=== PATIENT | female | born 1965 | race Caucasian/White ===

== ENCOUNTER 2020-01-04 09:21 | Outpatient (CLI) | payer OTHER, SELFPAY ==
[2020-01-04 09:40] LABS: Basophils Absolute Auto 0.1 K/mm3 (0.0-0.1); Basophils Percent Auto 0.6 % (0.2-1.2); Eosinophils Absolute Auto 0.2 K/mm3 (0-0.3); Eosinophils Percent Auto 2.3 % (0-4.4); Hematocrit 42.3 % (37.0-47.0); Hemoglobin 14.1 g/dL (12.0-15.0); Immature Granulocyte Absolute 0.06 K/mm3 (0.00-0.031); Immature Granulocyte Percent A 0.6 % (0-0.5); Lymphocytes Absolute Auto 3.97 K/mm3 (0.9-3.2); Lymphocytes Percent Auto 38.8 % (18.3-44.2); Mean Corpuscular HGB Conc 33.3 g/dl (32-36); Mean Corpuscular Hemoglobin 30.3 pg (26-34); Mean Corpuscular Volume 90.8 fl (80-100); Mean Platelet Volume 9.6 fl (7.4-10.4); Monocytes Absolute Auto 0.6 K/mm3 (0.1-0.6); Monocytes Percent Auto 5.4 % (2.6-8.5); Neutrophils Absolute Auto 5.4 K/mm3 (1.3-6.7); Neutrophils Percent Auto 52.3 % (45.5-73.1); Platelet Count Result 288 k/mm3 (150-375); Red Blood Count 4.66 M/mm3 (4.2-5.4); Red Cell Distribution Width 12.6 % (11.5-14.5); White Blood Count 10.2 K/mm3 (4.5-10.0)
[2020-01-04 12:28] LABS: Alanine Aminotransferase 45 U/L (4-35); Albumin Level 4.4 g/dL (3.5-5.1); Alkaline Phosphatase 70 U/L (38-126); Anion Gap 9 mmol/L (8-16); Aspartate Amino Transferase 28 U/L (14-36); Bilirubin,Total 0.4 mg/dL (0.2-1.3); Blood Urea Nitrogen 10 mg/dL (7-17); CRP 0.9 mg/dL (<1.0); Calcium 9.8 mg/dL (8.4-10.2); Carbon Dioxide 28 mmol/L (22-30); Chloride 104 mmol/L (98-107); Estimated Glomerular Filt Rate > 60; Glucose 150 mg/dL (65-105); Potassium 4.1 mmol/L (3.4-5.0); Sodium 141 mmol/L (137-145)
[2020-01-04 12:47] LABS: Erythrocyte Sedimentation Rate 35 mm/hr (0-20)
== END 2020-01-04 09:22 | disposition home or self-care (01) ==
PROVIDERS: PCP Emergency Medicine; Visit Provider Internal Medicine Hematology & Oncology
DX: D72.829 Elevated white blood cell count, unspecified (principal)
CPT/HCPCS: 36415; 80053; 85025; 85652; 86140; 88184

== ENCOUNTER 2020-09-14 10:34 | Outpatient (CLI) | payer OTHER, SELFPAY ==
[2020-09-14 10:54] LABS: Basophils Absolute Auto 0.1 K/mm3 (0.0-0.1); Basophils Percent Auto 0.7 % (0.2-1.2); Eosinophils Absolute Auto 0.2 K/mm3 (0-0.3); Eosinophils Percent Auto 1.9 % (0-4.4); Hematocrit 42.6 % (37.0-47.0); Hemoglobin 14.1 g/dL (12.0-15.0); Immature Granulocyte Absolute 0.08 K/mm3 (0.00-0.031); Immature Granulocyte Percent A 0.8 % (0-0.5); Lymphocytes Absolute Auto 4.31 K/mm3 (0.9-3.2); Mean Corpuscular HGB Conc 33.1 g/dl (32-36); Mean Corpuscular Hemoglobin 30.3 pg (26-34); Mean Corpuscular Volume 91.4 fl (80-100); Mean Platelet Volume 9.4 fl (7.4-10.4); Monocytes Absolute Auto 0.4 K/mm3 (0.1-0.6); Monocytes Percent Auto 4.2 % (2.6-8.5); Neutrophils Absolute Auto 5.4 K/mm3 (1.3-6.7); Neutrophils Percent Auto 51.4 % (45.5-73.1); Platelet Count Result 295 k/mm3 (150-375); Red Blood Count 4.66 M/mm3 (4.2-5.4); Red Cell Distribution Width 12.7 % (11.5-14.5); White Blood Count 10.5 K/mm3 (4.5-10.0)
[2020-09-14 10:59] LABS: Atypical Lymphocytes Present; Platelet Estimate Adequate (Adequate)
== END 2020-09-14 10:35 | disposition home or self-care (01) ==
LOC: ANHLAB 10:39
PROVIDERS: PCP Emergency Medicine; Visit Provider Internal Medicine Hematology & Oncology
DX: D72.829 Elevated white blood cell count, unspecified (principal)
CPT/HCPCS: 36415; 85025

== ENCOUNTER 2021-09-19 10:51 | Outpatient (CLI) | payer OTHER, SELFPAY ==
[2021-09-19 11:09] LABS: Basophils Absolute Auto 0.1 K/mm3 (0.0-0.1); Basophils Percent Auto 0.6 % (0.2-1.2); Eosinophils Absolute Auto 0.2 K/mm3 (0-0.3); Eosinophils Percent Auto 2.3 % (0-4.4); Hematocrit 43.6 % (37.0-47.0); Hemoglobin 14.3 g/dL (12.0-15.0); Immature Granulocyte Absolute 0.05 K/mm3 (0.00-0.031); Immature Granulocyte Percent A 0.5 % (0-0.5); Lymphocytes Absolute Auto 4.08 K/mm3 (0.9-3.2); Lymphocytes Percent Auto 39.4 % (18.3-44.2); Mean Corpuscular HGB Conc 32.8 g/dl (32-36); Mean Corpuscular Hemoglobin 30.6 pg (26-34); Mean Corpuscular Volume 93.2 fl (80-100); Mean Platelet Volume 9.4 fl (7.4-10.4); Monocytes Absolute Auto 0.5 K/mm3 (0.1-0.6); Neutrophils Absolute Auto 5.4 K/mm3 (1.3-6.7); Neutrophils Percent Auto 52.2 % (45.5-73.1); Platelet Count Result 286 k/mm3 (150-375); Red Blood Count 4.68 M/mm3 (4.2-5.4); Red Cell Distribution Width 12.3 % (11.5-14.5); White Blood Count 10.4 K/mm3 (4.5-10.0)
[2021-09-19 11:13] LABS: Blood Urea Nitrogen 7 mg/dL (8-26); Carbon Dioxide 27 mmol/L (22-30); Chloride 100 mmol/L (98-109); Estimated Glomerular Filt Rate 51; Glucose 124 mg/dL (70-105); Ionized Calcium (POC) 1.21 mmol/L (1.11-1.31); Potassium 3.8 mmol/L (3.5-4.9); Sodium 140 mmol/L (138-146)
[2021-09-19 11:17] LABS: Atypical Lymphocytes Present; Platelet Estimate Adequate (Adequate)
== END 2021-09-19 10:52 | disposition home or self-care (01) ==
LOC: ANHLAB 10:52
PROVIDERS: PCP Emergency Medicine; Visit Provider Internal Medicine Hematology & Oncology
DX: D72.829 Elevated white blood cell count, unspecified (principal)
CPT/HCPCS: 36415; 80047; 85025

== ENCOUNTER 2022-10-17 12:44 | Outpatient (CLI) | payer OTHER, SELFPAY ==
[2022-10-17 13:27] LABS: Basophils Absolute Auto 0.1 K/mm3 (0.0-0.1); Basophils Percent Auto 0.6 % (0.2-1.2); Eosinophils Absolute Auto 0.2 K/mm3 (0-0.3); Eosinophils Percent Auto 1.4 % (0-4.4); Hematocrit 43.6 % (37.0-47.0); Hemoglobin 14.8 g/dL (12.0-15.0); Immature Granulocyte Absolute 0.05 K/mm3 (0.00-0.031); Immature Granulocyte Percent A 0.4 % (0-0.5); Immature Platelet Fraction Pct 3.6 % (0.9-11.2); Lymphocytes Absolute Auto 4.39 K/mm3 (0.9-3.2); Lymphocytes Percent Auto 37.1 % (18.3-44.2); Mean Corpuscular HGB Conc 33.9 g/dl (32-36); Mean Corpuscular Hemoglobin 30.9 pg (26-34); Mean Platelet Volume 9.9 fl (7.4-10.4); Monocytes Absolute Auto 0.7 K/mm3 (0.1-0.6); Monocytes Percent Auto 5.6 % (2.6-8.5); Neutrophils Absolute Auto 6.5 K/mm3 (1.3-6.7); Neutrophils Percent Auto 54.9 % (45.5-73.1); Platelet Count Result 292 k/mm3 (150-375); Red Blood Count 4.79 M/mm3 (4.2-5.4); Red Cell Distribution Width 12.4 % (11.5-14.5); White Blood Count 11.8 K/mm3 (4.5-10.0)
[2022-10-17 13:42] LABS: Blood Urea Nitrogen 10 mg/dL (8-26); Carbon Dioxide 27 mmol/L (22-30); Chloride 103 mmol/L (98-109); Estimated Glomerular Filt Rate 57; Potassium 3.7 mmol/L (3.5-4.9); Sodium 140 mmol/L (138-146)
[2022-10-17 13:43] LABS: Glucose 114 mg/dL (70-105); Ionized Calcium (POC) 1.12 mmol/L (1.11-1.31)
== END 2022-10-17 12:45 | disposition home or self-care (01) ==
LOC: ANHLAB 12:49
PROVIDERS: PCP Emergency Medicine; Visit Provider Internal Medicine Hematology & Oncology
DX: D72.829 Elevated white blood cell count, unspecified (principal)
CPT/HCPCS: 36415; 80047; 85025; 85055

== ENCOUNTER 2023-08-10 08:07 | Outpatient (CLI) | payer OTHER, SELFPAY ==
[2023-08-10 08:53] LABS: Hematocrit 43.4 % (37.0-47.0); Hemoglobin 14.3 g/dL (12.0-15.0); Mean Corpuscular HGB Conc 32.9 g/dl (32-36); Mean Corpuscular Hemoglobin 29.9 pg (26-34); Mean Corpuscular Volume 90.8 fl (80-100); Mean Platelet Volume 9.7 fl (7.4-10.4); Platelet Count Result 288 k/mm3 (150-375); Red Blood Count 4.78 M/mm3 (4.2-5.4); Red Cell Distribution Width 12.7 % (11.5-14.5)
[2023-08-10 09:02] LABS: Appearance Urine Clear (Clear); Bilirubin Urine Negative (Negative); Blood Urine Negative (Negative); Color Urine Yellow (Yellow); Glucose Urine UA Negative (Negative); Ketones Urine Negative (Negative); Leukocyte Esterase Ur Negative LEU/UL (Negative); Nitrate Urine Negative (Negative); Protein Urine Negative (Negative); Urobilinogen Urine 0.2 mg/dL (<2.0)
[2023-08-10 09:05] LABS: Add Urine Microscopic? NO; Specific Grav Ur 1.002 (1.001-1.035)
[2023-08-10 09:06] LABS: Alanine Aminotransferase 25 U/L (6-35); Albumin Level 4.6 g/dL (3.5-5.1); Alkaline Phosphatase 70 U/L (38-126); Anion Gap 9 mmol/L (4-12); Aspartate Amino Transferase 21 U/L (14-36); Bilirubin,Total 0.6 mg/dL (0.2-1.3); Blood Urea Nitrogen 10 mg/dL (7-17); Calcium 9.4 mg/dL (8.4-10.2); Carbon Dioxide 27 mmol/L (22-30); Chloride 106 mmol/L (98-107); Cholesterol 223 mg/dL (0-200); Estimated Glomerular Filt Rate > 60; Glucose 134 mg/dL (65-110); HDL Direct 49 mg/dL; Hemoglobin A1C 5.5 % (<5.7); Potassium 3.9 mmol/L (3.4-5.0); Sodium 142 mmol/L (137-145); Triglycerides 170 mg/dL (<150)
[2023-08-10 09:16] LABS: Creatinine Urine 5.3 mg/dL
[2023-08-10 09:17] LABS: LDL Cholesterol Direct 129 mg/dL
[2023-08-10 09:19] LABS: Microalbumin Urine Random < 6.0 mg/L (0-16.7)
[2023-08-10 09:31] LABS: Free T4 Free Thyroxine 1.34 ng/mL (0.78-2.19); Vitamin D 25 Hydroxy 34.7 ng/mL
[2023-08-10 09:40] LABS: Thyroid Stimulating Hormone 0.891 uIU/mL (0.465-4.680)
== END 2023-08-10 08:08 | disposition home or self-care (01) ==
LOC: ANHLAB 08:11
PROVIDERS: PCP Emergency Medicine; Visit Provider Emergency Medicine
DX: M85.88 Other specified disorders of bone density and structure, other site (principal); M50.30 Other cervical disc degeneration, unspecified cervical region; J44.9 Chronic obstructive pulmonary disease, unspecified; G43.909 Migraine, unspecified, not intractable, without status migrainosus; E03.9 Hypothyroidism, unspecified
CPT/HCPCS: 36415; 80053; 80061; 81003; 82043; 82306; 83036; 84439; 84443; 85027

== ENCOUNTER 2024-09-02 11:01 | Outpatient (CLI) | payer OTHER, SELFPAY ==
--- OUTSIDE RECORDS SUMMARY | 2024-09-02 11:06 | XMS_ITS | Encounter Summary ---
Author Organization [facility] Address [address] [facility] [place] [address] Care Team Providers Care Phone Operator Name Role Phone Amor Josue MD Primary Care Provider [phone] Encounter Details Date Type Department Care Team (Late st Contact Info) Description 04/13/2023 Telephone [facility] - Endocrinology [address] [place] [address], [facility] [place] [phone] Raffi Koo MD [address] [place] [id number] Social History Tobacco Use Types Packs/Day Years Used Date Smoking Tobacco: Every Day Cigarettes 1 26 Smokeless Tobacco: Never Alcohol Use Standard Drinks/Week Comments Yes 0 (1 standard drink = 0.6 oz pur e alcohol) socially Comments No Sex and Gender Information Value Date Recorded Sex Assigned at Not on file 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 Raffi Koo Reason for call: Ms. Rebekah Beyer's annual appt w you is 07/02/2023, she needs lab orders for the blood work you would like her to do put in her chart. She is coming to our lab. Patient Call Back number: [phone] INSPECTOR documented in this encounter Plan of Treatment Upcoming Encounters Date Type Department Care Team (Late st Contact Info) Description 12/09/2024 3:20 PM CDT Office Visit [facility] - Endocrinology [address] [place] [address], [place] [address] Raffi Koo MD [address] [place] [address] [place] [address] documented as of this encounter Visit Diagnoses Not on filedocumented in this encounter Care Teams Phone Operator Relationship Specialty Start Date End Date Amor Josue MD [address] [facility] [address] [place] [address] PCP - General 04/26/15 documented as of this encounter
--- OUTSIDE RECORDS SUMMARY | 2024-09-02 11:06 | XMS_ITS | Encounter Summary ---
Author Organization [facility] Address [address] [facility] [place] [address] Care Team Providers Care Bulwark Carpenter Name Role Phone Amor Josue MD Primary Care Provider [phone] Encounter Details Date Type Department Care Team (Late st Contact Info) Description 05/05/2024 Telephone [facility] - Endocrinology [address] [place] [address], [facility] [place] [phone] Raffi Koo MD [address] [place] [address] Social History Tobacco Use Types Packs/Day Years Used Date Smoking Tobacco: Every Day Cigarettes 1 26 Smokeless Tobacco: Never Alcohol Use Standard Drinks/Week Comments Yes 0 (1 standard drink = 0.6 oz pur e alcohol) socially Comments No Sex and Gender Information Value Date Recorded Sex Assigned at Not on file 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 Rebekah Beyer called re: ACUTE LARYNGITIS. She says it's been going on for about 3 weeks, she did reach out to her PCP, who prescribed antibiotics that didn't work. She would liketo know what she can do, is there anythng you ca prescribe? Patient Call Back Number: [phone] documented in this encounter Plan of Treatment Upcoming Encounters Date Type Department Care Team (Late st Contact Info) Description 12/09/2024 3:20 PM CDT Office Visit [facility] - Endocrinology [address] [place] [address], [place] [address] Raffi Koo MD [address] [place] [address] [place] [address] documented as of this encounter Visit Diagnoses Not on filedocumented in this encounter Care Teams Bulwark Carpenter Relationship Specialty Start Date End Date Amor Josue MD [address] [facility] [address] [place] [address] PCP - General 04/26/15 documented as of this encounter
--- OUTSIDE RECORDS SUMMARY | 2024-09-02 11:06 | XMS_ITS | Data Portability ---
Author Organization [facility], Main Office Address [address] [place] [address] Care Team Providers Care General Sales Manager Name Role Phone CAMERON ALANIS Primary Care Provider Assessment No assessment recorded. Plan of Treatment Reminders Order Date Submit Date Provider Last Modified By Organization Details Last Modified Time Details Appointments None recorded. Lab None recorded. Referral None recorded. Procedures None recorded. Surgeries None recorded. Imaging CT, neck, soft tissue, w/ contrast [address] ([employer]), [address] [place], [address], 5 10:59:24 Medication Orders None recorded. Patient TargetsNo targets recorded. Patient Instructions Encounter Date Encounter Id Patient Instructions Last Modified By Organization Details Last Modified Time 04/18/2024 [id number] this patient is refusing a laryngoscopy and biopsy. Hopefully she will change her mind. [email or web address] Not available 04/18/2024 14:56:48 Reason for Referral None Reported. Problems Name Problem SNOMED Code Status Onset Date Resolution Date Notes Provider Name and Address Organization Details Recorded Time Shoulder joint pain 407670515 Active Not Available [facility] 3 17:13:42 Knee pain Active Not Available [facility] 3 17:13:42 Sprain of ankle 52384165 Active Not Available [facility] 3 17:13:42 Lesion of larynx 099887211 Active 025 Roselia Duckworth RN [facility], [facility] 5 14:51:36 Squamous cell carcinoma of larynx 782043806 Active 025 Mann Pritchard MD [address] [facility] [address], [place], [address] , [facility] 14:56:00 Problem Notes None recorded. Procedures Surgical History Date Name Laterality Status Provider Name and Address Organization Details Recorded Time Remove tonsils and adenoids completed Roselia Duckworth RN [facility] 04/18/2024 14:34:28 Imaging Results None recorded. Procedure Notes None recorded. Medical Equipment None Reported. Allergies Allergen ID Allergen Name Allergen Category Reaction Reaction Severity Criticality Documentation Date Start Date Code Code System Note Provider Name and Address Organization Details Recorded Time 60532 codeine medicatio n Not available Not available Not available 04/23/2022 2670 RxNorm Not Available [facility] 17:14:46 81207 doxycycli ne Not available Not available Not available Not available 04/18/2024 3640 RxNorm ZANE Velásquez, [facility] 14:35:39 93137 Substance with sulfonami de structure and antibacte rial mechanism of action (substanc e) medicatio n Not available Not available Not available 04/18/2024 71196 8003 SNOMED ZANE Velásquez, [facility] 14:39:24 Medications Name Sig Start Date Stop Date Status Note LastModified by Organization Details LastModified Time cyclobenzapr ine 10 mg tablet TAKE 1 TABLET BY MOUTH AT BEDTIME FOR 3 DAYS 04/18 completed Not Available Not Available Not Available methocarbamo l 500 mg tablet 04/18 completed Not Available Not Available Not Available doxycycline hyclate 100 mg capsule TAKE 1 CAPSULE BY MOUTH EVERY 12 HOURS FOR 7 DAYS 04/18 completed Not Available Not Available Not Available azithromycin 250 mg tablet 04/18 completed Not Available Not Available Not Available prednisone 20 mg tablet 04/18 completed Not Available Not Available Not Available alendronate 70 mg tablet 04/18 completed Not Available Not Available Not Available amoxicillin 500 mg tablet TAKE 1 TABLET BY MOUTH EVERY 8 HOURS FOR 7 DAYS 04/18 completed Not Available Not Available Not Available ergocalcifer ol (vitamin D2) 1,250 mcg (50,000 unit) capsule TAKE 1 CAPSULE BY MOUTH WEEKLY 04/18 completed Not Available Not Available Not Available albuterol sulfate HFA 90 mcg/actuatio n aerosol inhaler INHALE 2 PUFFS BY MOUTH EVERY 6 HOURS active Not Available Not Available No t Available ondansetron 4 mg disintegrati ng tablet TK 1 T PO Q 8 H PRF NAUSEA. 05/09 completed Not Available Not Available Not Available fluticasone propionate 50 mcg/actuatio n nasal spray,suspen frederic USE 1 SPRAY IN EACH NOSTRIL TWICE DAILY 04/18 completed Not Available Not Available Not Available levothyroxin e 112 mcg tablet TAKE 1 TABLET BY MOUTH EVERY DAY active Not Available Not Available No t Available amoxicillin 875 mg-potassium clavulanate 125 mg tablet TAKE 1 TABLET BY MOUTH TWICE DAILY FOR 7 DAYS 04/18 completed Not Available Not Available Not Available nitrofuranto in monohydrate/ macrocrystal s 100 mg capsule 05/09 completed Not Available Not Available Not Available albuterol 04/18 completed Not Available Not Available Not Available Vitals Date Recorded Body height Body mass index (BMI) Body weight Body temperature Provider Name and Address Organization Details Last Updated DateTime 04/18/2024 154.94 cm 27.7 kg/m2 65697.92 g 98 [degF] Roselia Duckworth RN [place] [facility] [employer] Experience 04/18/2024 14:43:04 Social History None recorded. Functional Status Question Answer Note LastModified by Organizat ion Details LastModified Time What is your level of alcohol consumption? Occasional [email or web address] Information not available 04/18/2024 Mental Status None recorded. Family History Nothing Reported Notes:CHILDREN: TUBES Medical History Condition Response COPD Y SLEEP DISORDER Y Gynecological HistoryNo gynecological history recorded. Obstetrics History GPAL:G 0 P 0 0 0 0 Past Encounters Encounter ID Performer Location Encounter Start Date Encounter Closed Date Diagnosis/Indication Diagnosis SNOMED-CT Code Diagnosis ICD10 Code Diagnosis Note [id number] Mann Pritchard MD [facility] [place] [address] [place] [address] 04/18/2024 13:53:21 04/19/2024 12:40:01 Squamous cell carcinoma of larynx 246162420 C32.9 Health Concerns Section Related Observation LastModified by Organization Detai ls LastModified Time None Recorded Concern Status LastModified by Organization Details LastModified Time None Recorded Advance Directives Directive None Recorded Payers Insurance Date Sequence Insurance Name Policy Number Policy Fernandez Covered Member ID Fernandez Member ID Guarantor Name 04/18/2024 1 [facility] - DOS ON OR AFTER 20 (MEDICAID REPLACEMENT - HMO) Rebekah Beyer [id number] Rebekah Beyer 04/18/2024 1 [facility] - DOS PRIOR TO 2020 (MEDICAID REPLACEMENT - HMO) Rebekah Beyer [id number] Rebekah Beyer Notes Date Note Type Note Provider Name and Address Organization Details Recorded Time 04/18/2024 text/html this patient is a lifelong smoker who reports hoarseness for 4 weeks. She insists is due to her ill-fitting dentures. She reports she does have lymphoma. Mann Pritchard MD [address] [place] [address], [place] [address], [place], [address], [facility] 04/18/2024 14:57:15 OBGyn Episode No OBEpisode recorded.
--- OUTSIDE RECORDS SUMMARY | 2024-09-02 11:07 | XMS_ITS | Data Portability ---
Author Organization [facility] [place] Address [address] [place] [address] Care Team Providers Care Superintendent Colliery Name Role Phone CAMERON ALANIS Primary Care Provider [phone] Assessment Encounter Date Assessment Date Assessment LastModified by Organization Details LastModified Time 07/13/2020 07/13/2020 Annual gynecological exam performed. Patient will come back in a year unless there are new symptoms. Not available 07/12/2020 17:14:31 Plan of Treatment Reminders Order Date Submit Date Provider Last Modified By Organization Details Last Modified Time Details Appointments None record ed. Lab None record ed. Referral None record ed. Procedures None record ed. Surgeries None record ed. Imaging None record ed. Medication Orders None record ed. Patient TargetsNo targets recorded. Patient InstructionsNo instructions recorded. Reason for Referral None Reported. Problems Name Problem SNOMED Code Status Onset Date Resolution Date Notes Provider Name and Address Organization Details Recorded Time SNOMED CT Concept Completed 201807/12/2020 Encntr for general adult medical exam w/o abnormal findings;R ecorded Elsewhere: No Locatio n: [facility] rce: EHR Chroni c: N Practice ID: [id number] Billa ble Time: 11:00:00 AM Sofi tang [facility] 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 1 17:15:43 Screening for malignant neoplasm of rectum Completed 201807/12/2020 Encounter for screening for malignant neoplasm of rectum;Rec orded Elsewhere: No Locatio n: [facility]: EHR Chroni c: N Practice ID: [id number] Gabby ble Time: 11:00:00 AM [facility] 1 17:15:39 Problem Notes None recorded. Procedures Surgical History Date Name Laterality Status Provider Name and Address Organization Details Recorded Time 1 Date of Last Pap Smear completed [facility] 07/13/2020 10:52:05 9 Date of Last Mammogram completed [facility] 07/12/2020 17:16:17 1 section completed [facility] 07/12/2020 17:22:51 8 section completed [facility] 07/12/2020 17:22:55 6 section completed [facility] 07/12/2020 17:22:59 Imaging Results None recorded. Procedure Notes None recorded. Medical Equipment None Reported. Allergies Allergen ID Allergen Name Allergen Category Reaction Reaction Severity Criticality Documentation Date Start Date Code Code System Note Provider Name and Address Organization Details Recorded Time 47765 codeine medicatio n vomiting Not available Not available 02/10/2020 2670 RxNorm React ion: vomit ing; Comme nt: [facility]at [facility]; Not Available [facility] 0 14:14:57 96086 ibuprofen medicatio n Not available Not available Not available 02/10/2020 5640 RxNorm React ion: swell ing; Comme nt: Locat [facility]: [facility]; Not Available [facility] 0 14:14:57 Medications Name Sig Start Date Stop Date Status Note LastModified by Organization Details LastModified Time Zyrtec 10 mg tablet take 1 tablet by oral route every day 2018 active Prescribe d Elsewhere : Yes Locat ion: [facility] By: amkuhl En counter DateTime: 9 11:00:00 AM Not Available Not Available Not Available levothyrox ine 25 mcg tablet take 1 tablet by oral route every day 2018 active Prescribe d Elsewhere : Yes Locat ion: [facility] By: amkuhl En counter DateTime: 9 11:00:00 AM Not Available Not Available Not Available Fosamax 70 mg tablet take 1 tablet by oral route every week in the morning, at least 30 min before first food, beverage, or medicatio n of day 2018 active Prescribe d Elsewhere : Yes Locat ion: [facility] By: amkuhl En counter DateTime: 9 11:00:00 AM Not Available Not Available Not Available Multi Vitamin 9 mg iron/15 mL oral liquid 2018 active Prescribe d Elsewhere : Yes Locat ion: [facility] By: amkuhl En counter DateTime: 9 11:00:00 AM Not Available Not Available Not Available Vitals Date Recorded Body height Body mass index (BMI) Body weight Systolic And Diastolic Provider Name and Address Organization Details Last Updated DateTime 07/13/2020 152.4 cm 35.7 kg/m2 97347.4 g 122/72 mm[Hg] Sofi Bean [facility] 07/13/2020 10:51:44 Social History Question Answer Notes LastModified by Organizat ion Details LastModified Time Tobacco Smoking Status Current Every Day Smoker [facility] 07/12/2020 17:22:31 Are You Blind Or Do You Have Difficulty Seeing? No Information not available 07/12/2020 What Is Your Level Of Caffeine Consumption? Moderate Information not available 07/12/2020 Are You Deaf Or Do You Have Serious Difficulty Hearing? No Information not available 07/12/2020 What Type Of Diet Are You Following? REGULAR Information not available 07/12/2020 Do You Use Your Seat Belt Or Car Seat Routinely? Yes Information not available 07/12/2020 Do You Have Smoke And Carbon Monoxide Detectors In Your Home? Yes Information not available 07/12/2020 Do You Use Sunscreen Routinely? Yes Information not available 07/12/2020 Sex: Unknown Functional Status Question Answer Note LastModified by Organizat ion Details LastModified Time Do you use any illicit or recreational drugs? No Information not available 07/12/2020 What is your level of alcohol consumption? Moderate Information not available 07/12/2020 Are you able to walk? YESWOREST Information not available 07/12/2020 What is your exercise level? Occasional Information not available 07/12/2020 Mental Status Question Answer Note LastModified by Organization D etails LastModified Time Do you feel stressed (tense, restless, nervous, or anxious, or unable to sleep at night)? [id number] Information not available 07/12/2020 Family History Relationship Description Onset Age of this Age Resolved Age Notes LastModified by Organization Details LastModified Time Brother Chronic hepatitis Not available 2020 17:19:13 Father Diabetes mellitus Not available 2020 17:19:21 Father Heart disease Not available 2020 17:19:27 Mother Hypertensive disorder Not available 2020 17:19:49 Sister Malignant neoplasm of ovary Not available 2020 17:20:04 Sister Malignant neoplasm of uterus Not available 2020 17:20:23 Sister Malignant tumor of breast Not available 2020 17:20:42 Sister Disorder of thyroid gland Not available 2020 17:21:12 Medical History Condition Response Allergies (Food, seasonal, environmental ) Y Other Y Thyroid Problems Y Osteoporosis Y Gynecological History Statement/Question Response Abnormal Pap N Date of Last Mammogram 12/08/2018 Date of LMP STIs/STDs Y HPV Vaccine N Current Control Method Menopause If Post Menopausal, Age at Menopause 46 Sexually Active? Y Menses Monthly N Date of Last Pap Smear 07/13/2020 Sexual Problems? N Obstetrics History GPAL:G 3 P 3 0 0 3 Type Value Full Term 3 Living 3 Total 3 Past Encounters Encounter ID Performer Location Encounter Start Date Encounter Closed Date Diagnosis/Indication Diagnosis SNOMED-CT Code Diagnosis ICD10 Code Diagnosis Note [id number] Xochitl Askew , [facility] [address] [address] 07/13/2020 09:44:11 07/13/2020 11:33:58 Gynecologic examination 19859009 Z01.419 Take Calcium with Vitamin D 12-1500mg daily. Do monthly self breast exams. It is advised to get annual flu shot in the fall and she could obtain at [facility] or [facility] care clinic. If you haven't received the Tdap vaccine in the last 10 years you should obtain one as well. Have mammogram yearly, bone density every 2-3 years and colonoscop y every 5-10 years depending on findings and history. Engage in daily exercise of low impact aerobic exercise 45-60 minutes 4-5 times weekly. Avoid tobacco and illicit drugs as well as using moderation with alcohol intake less than 1-2 8 oz beverages daily. This lifestyle behavior pattern will lead to less health conditions and longer life span. If BMI greater than 25 weight watchers or dietary consult advised. Questions have been answered. Patient appears to understand instructio ns, but if you have any further questions call or respond to this email Pap/hpv hx is wnl Last paphpv testing 2019 wnl Defer pap/hpv q3-5yrs per asccp unless otherwise indicated Declined need std screening No issues or concerns this year Colon UTD Dexa-will have endocrinol ogist that manages her fosamax order this test. Health Concerns Section Related Observation LastModified by Organization Detai ls LastModified Time None Recorded Concern Status LastModified by Organization Details LastModified Time None Recorded Advance Directives Directive None Recorded Payers Insurance Date Sequence Insurance Name Policy Number Policy Fernandez Covered Member ID Fernandez Member ID Guarantor Name 06/28/2021 1 [facility] - [facility] PRIOR TO 2020 (MEDICAID REPLACEMENT - HMO) Rebekah Beyer [id number] Rebekah Beyer Notes Date Note Type Note Provider Name and Address Organization Details Recorded Time 07/13/2020 text/html Annual Generation Technologist Post-MenopausalRepo rted bypatient.Menopausa l Symptoms:no menopausal symptoms; normal vaginal lubrication Vaginal Bleeding:history of menopause having occurred; no history of post menopausal bleeding Urinary Symptoms:no hematuria; no incontinence; no nocturia; no urinary frequency Vulva:no genital lesion; no vulvar atrophy Vagina:normal vaginal discharge; no vaginal atrophy Breast:no breast lump; no nipple discharge; no breast pain Sexual Complaints:no sexual complaints Psychological Symptoms:no depression; no anxiety Preventive Measures:encourage regular mammograms starting age 40; encourage self breast examination; encourage regular exercise; encourage no tobacco use; needs to schedule mammogram; history of recent colonoscopy; needs to schedule bone density (Goes to endocrinology bone health) Xochitl Askew WILLIAM- [address], [place], [address], [facility] 07/13/2020 11:16:51 OBGyn Episode Ob Episode Information Episode Created Date Number of Fetuses Patient Bloodtype Patient rh Status Prepregnancy Weight lbs Domestic Partner Domestic Partner Phone Father Name Advertising Sales Representative Status 07/13/19 21 1 CLOSED Fetus Data First Name Last Name Admitted to NICU Weight (g) Sex Living Outcome Pediatric Complications Fetus ID Race Codes Race Delivery Type 2919.77 1704 F Full Term 9970 Repeat Vincenzo Calculation Initial Vincenzo Date Initial Exam Date Initial Exam Provider Initial Ultrasound Date Last Menstrual Period Date Ultra Sound Weeks Gestation 0 Eighteen To Twenty Week Vincenzo Update Ultra Sound Date Fundal Height At Umbil Quickening Date Ultra Sound Latest Weeks Gestation Final Vincenzo Confirmed By Final Vincenzo Confirmed Date Final Vincenzo Date Ultra Sound Latest Days Gestation 0 0 Menstrual History Last Menstrual Date Menses Monthly On Bcp Conception Prior Menses Frequency Hcg Plus Date Menarche Onset Age Delivery Information Delivery Date Delivery Type Labor Anesthesia Weeks Gestation Incision Type Labor Labor Length Hrs Delivered By Post Complications Tubal Sterilization Discharge Date Comments 1 Discharge Information Feeding Method Contraceptive Method Maternal HG B and HCT Levels Ob Episode Information Episode Created Date Number of Fetuses Patient Bloodtype Patient rh Status Prepregnancy Weight lbs Domestic Partner Domestic Partner Phone Father Name Advertising Sales Representative Status 07/13/19 21 1 CLOSED Fetus Data First Name Last Name Admitted to NICU Weight (g) Sex Living Outcome Pediatric Complications Fetus ID Race Codes Race Delivery Type 2834.95 F Full Term 9971 Repeat Vincenzo Calculation Initial Vincenzo Date Initial Exam Date Initial Exam Provider Initial Ultrasound Date Last Menstrual Period Date Ultra Sound Weeks Gestation 0 Eighteen To Twenty Week Vincenzo Update Ultra Sound Date Fundal Height At Umbil Quickening Date Ultra Sound Latest Weeks Gestation Final Vincenzo Confirmed By Final Vincenzo Confirmed Date Final Vincenzo Date Ultra Sound Latest Days Gestation 0 0 Menstrual History Last Menstrual Date Menses Monthly On Bcp Conception Prior Menses Frequency Hcg Plus Date Menarche Onset Age Delivery Information Delivery Date Delivery Type Labor Anesthesia Weeks Gestation Incision Type Labor Labor Length Hrs Delivered By Post Complications Tubal Sterilization Discharge Date Comments 8 Discharge Information Feeding Method Contraceptive Method Maternal HG B and HCT Levels Ob Episode Information Episode Created Date Number of Fetuses Patient Bloodtype Patient rh Status Prepregnancy Weight lbs Domestic Partner Domestic Partner Phone Father Name Advertising Sales Representative Status 07/13/19 21 1 CLOSED Fetus Data First Name Last Name Admitted to NICU Weight (g) Sex Living Outcome Pediatric Complications Fetus ID Race Codes Race Delivery Type 2834.95 M Full Term 9972 Primary Vincenzo Calculation Initial Vincenzo Date Initial Exam Date Initial Exam Provider Initial Ultrasound Date Last Menstrual Period Date Ultra Sound Weeks Gestation 0 Eighteen To Twenty Week Vincenzo Update Ultra Sound Date Fundal Height At Umbil Quickening Date Ultra Sound Latest Weeks Gestation Final Vincenzo Confirmed By Final Vincenzo Confirmed Date Final Vincenzo Date Ultra Sound Latest Days Gestation 0 0 Menstrual History Last Menstrual Date Menses Monthly On Bcp Conception Prior Menses Frequency Hcg Plus Date Menarche Onset Age Delivery Information Delivery Date Delivery Type Labor Anesthesia Weeks Gestation Incision Type Labor Labor Length Hrs Delivered By Post Complications Tubal Sterilization Discharge Date Comments 6 Discharge Information Feeding Method Contraceptive Method Maternal HG B and HCT Levels
--- OUTSIDE RECORDS SUMMARY | 2024-09-02 11:07 | XMS_ITS | Clinical Summary ---
Author Organization [facility] Address [address] [place] [id number] Care Team Providers Care Site Controller Name Role Phone Unavailable Primary Care Provider Unavailabl e Social History Tobacco Use Types Packs/Day Years Used Date Smoking Tobacco: Never Assessed Comments Unknown Sex and Gender Information Value Date Recorded Sex Assigned at Not on file Legal Sex Female 8:17 PM CDT Gender Identity Not on file Sexual Orientation Not on file Plan of Treatment Health Maintenance Due Date Last Done Comments Cervical Cancer Screening Pa p Smear (Age 30 to 64) Every 3 Years 1964 Colorectal Cancer Screening Colonoscopy (10 Years) 1964 Annual Physical 01/22/1967 Hepatitis C 01/22/1982 DTaP, Tdap and Td Vaccines ( 1 - Tdap) 01/22/1983 Cervical Cancer Screening Pa p with HPV Testing (Age 30 to 64) Every 5 Years 01/22/1994 Cervical Cancer Screening with HPV 01/22/1994 Mammogram Screening 2004 Pneumococcal Vaccine: 50+ Ye ars (1 of 1 - PCV) 01/22/2014 Zoster Vaccines (1 of 2) 01/22/2014 COVID-19 Vaccine ( - 2023-2 5 season) 2023 RSV Immunization or 60+ Years (1 - 1-dose 75+ series) 01/22/2039 Meningococcal B Vaccine Aged Out No l onger eligible based on patient's age to complete this topic Meningococcal Vaccine Aged Out No jose arias eligible based on patient's age to complete this topic RSV Immunizations Under 20 Months Aged Out No longer eligible based on patient's age to complete this [place] [address]
--- OUTSIDE RECORDS SUMMARY | 2024-09-02 11:07 | XMS_ITS | Clinical Summary ---
Author Organization [facility] [employer] Address [address] [place] [address] Care Team Providers Care Doctor Of Pharmacy Name Role Phone Amor Josue MD Primary Care Provider [phone] Source Comments [facility],non-owned Affiliates and Associated Physician Practices is amultiple site organization consisting of ambulatory clinics and hospital sitesin [place], [place], [place] and [place]. This disclosure is being madepursuant to the Care Everywhere program and may not contain all information available regarding this patient. Last updated 17.[facility] Allergies Active Allergy Reactions Criticality Noted Date Comments Aripiprazole Other Low 06/10/2016 nerve jump in right arm Codeine Nausea and/or Vomiting Low 06/10/2016 vomiting and fever Diphenhydramine Itching,Swelling Low 06/10/2016 Doxycycline Unknown 06/15/2024 Ibuprofen Swelling 06/29/2018 Olanzapine Swelling Medium 06/10/2016 Face and mouth swelling Tiotropium [place] Monohydrate Swelling Medium 10/14/2017 Sulfa Drugs Other Low 06/10/2016 unknown Sulfasalazine Other Low 06/10/2016 unknown Zyprexa Swelling Low 06/10/2016 Face and mouth swelling Medications * Be aware that medications may not be up to date on this document. Alwaysverify current medications with the patient. cetirizine (ZYRTEC) 5 MG tablet Take 1 (one) tablet by mouth DAILY 06/11/19 17 Active VENTOLIN HFA 108 (90 BASE) MCG/ACT inhalerIndicati ons:Chronic Obstructive Pulmonary Disease Inhale 1 (one) puff by mouth as needed Reasons: Chronic Obstructive Lung Disease 03/16/19 19 Active acetaminophen (TYLENOL) 325 MG tablet Take 1 (one) tablet by mouth every 4 hours as needed for Fever or Pain Maximum allowable Acetaminophen amount = 4 Grams (4000 mg) / 24 hours. Active vitamin D, ergocalciferol, (DRISDOL) 1.25 MG (80502 UT) capsuleIndicati ons:Hypovitamin osis D Take 1 (one) capsule by mouth every 7 days 12 capsule 07/30/19 22 Active nicotine (Nicoderm CQ) 21 MG/24HR patchIndication s:Smoking Apply 1 (one) patch to skin once daily 30 patch 04/02/19 23 Active Additional Information Patient not taking.Reason: Patient adjusted, Reported on 06/28/2024 fluticasone propionate (Flonase) 50 MCG/ACT nasal spray [place] 1 (one) spray into each nostril 2 times daily 04/14/19 25 Active methylPREDNISol one (Medrol Dosepak) 4 MG tablet Take by mouth as directed Take as directed by mouth per package instructions. 21 tablet 05/25/19 25 Active Additional Information Patient not taking.Reason: Patient adjusted, Reported on 06/28/2024 levothyroxine (Synthroid) 112 MCG tabletIndicatio ns:Hypothyroidi sm due to Carmine's thyroiditis Take 1 (one) tablet by mouth once daily 90 tablet 1 08/09/19 25 Active levothyroxine (Synthroid) 112 MCG tabletIndicatio ns:Hypothyroidi sm due to Carmine's thyroiditis Take 1 (one) tablet by mouth once daily 90 tablet 06/10/19 25 025 Discontin ued(Reord er) levothyroxine (Synthroid) 112 MCG tabletIndicatio ns:Hypothyroidi sm due to Carmine's thyroiditis Take 1 (one) tablet by mouth once daily 90 tablet 1 08/06/19 25 025 Discontin ued(Reord er) Active Problems Problem Noted Date Diagnosed Date Metabolic syndrome 01/24/2021 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 Knee pain 09/05/2019 RACHEL (obstructive sleep apnea) 11/25/2018 Overview (11/25/2018): Mild Obstructive Sleep Apnea (AHI=8.2 respiratory events/h; Davonte SaO2=79%; SaO2 below 88%=1.7% of night; Efficiency=81%; Stage R=24%; mass=76 kg; Salus 10 May 2018) Intolerance of continuous po sitive airway pressure (CPAP) ventilation 11/25/2018 Sleep terrors 11/25/2018 Tobacco use disorder 11/25/2018 Migraine without aura and wi thout status migrainosus, not intractable 06/07/2018 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 Sleep talking 01/30/2018 Sleep related leg cramps 01/30/2018 Hypersomnia due to medical condition 01/30/2018 COPD (chronic obstructive pulmonary disease) 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 10/13/2016 Primary osteoarthritis of right hand 10/13/2016 Primary osteoarthritis of left hand 10/13/2016 Other fatigue 10/13/2016 Chronic neck and back pain 06/10/2016 Pulmonary air trapping 02/24/2016 Overview (10/15/2020): severe Encounters Date Type Department Care Team Description 08/08/2024 Results Follow-Up [facility] - Endocrinology [address] [place] [phone] Raffi Koo MD 08/05/2024 4:10 PM CDT - 08/05/2024 11:59 PM CDT Hospital Encounter [facility] [address] [place] [phone] Discharge Disposition: Home or Self Care 08/05/2024 2:40 PM CDT Office Visit [facility] - Endocrinology [address] [place] [phone] Raffi Koo MD Screening for diabetes mellitus (DM) (Primary Dx); 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; Age-related osteoporosis without current pathological fracture; Hypothyroidism, acquired; Hypovitaminosis D 08/05/2024 Travel 06/28/2024 2:15 PM CDT Office Visit [facility] - ENT [address] [place] [phone] Jeremie Almanza MD Supraglottic mass (Primary Dx); Hoarseness; Odynophagia 06/28/2024 Travel 06/22/2024 Telephone [facility] - ENT [address] [place] [phone] Jeremie Almanza MD Refill Request 06/15/2024 8:30 AM CDT Office Visit [facility] - ENT [address] [place] [phone] Jeremie Almanza MD Massa, Sean T, MD Supraglottic mass (Primary Dx) 06/15/2024 7:30 AM CDT - 06/15/2024 11:59 PM CDT Hospital Encounter [facility] [address] [place] [address] Jeremie Almanza MD Discharge Disposition: Home or Self Care 06/15/2024 7:20 AM CDT - 06/15/2024 7:29 AM CDT Hospital Encounter [facility] [address] [place] [address] Jeremie Almanza MD Discharge Disposition: Home or Self Care 06/15/2024 Telephone [facility] ENT [address] [place] [phone] Joe Roland MD Med Question 06/15/2024 Travel 06/08/2024 Refill [facility] - Endocrinology [address] [place] [phone] Raffi Koo MD Refill Request from Last 3 Months Immunizations Immunization Administration Dates Next Due Covid Moderna primary monovalent 12+ yr 0.5mL ,05/22/2020 INFLUENZA VACCINE, QUADR. (F LUZONE; FLULAVAL; FLUARIX; AFLURIA QUADRIVALENT; 6MO+), 0.5 ML (IIV4) 2021 Family History Medical History Relation Name Comments Diabetes Father Heart Disease Father Osteoporosis Maternal Grandmother CVA Mother Lung Disease Sister Thyroid Disease Sister Relation Name Status Comments Father Maternal Grandmother Mother Alive Sister Alive Social History Tobacco Use Types Packs/Day Years Used Date Smoking Tobacco: Every Day Cigarettes 1 26 Smokeless Tobacco: Never Tobacco Cessation:Ready to Q uit: Not Asked; Counseling Given: Not Answered Comments:Smoke a little more than half pack a day Alcohol Use Standard Drinks/Week Comments Not Currently 0 (1 standard drink = 0.6 oz pur e alcohol) socially Comments No Sex and Gender Information Value Date Recorded Sex Assigned at Not on file Legal Sex Female 5:26 PM [employer] Gender Identity Not on file Sexual Orientation Not on file Last Filed Vital Signs Vital Sign Reading Time Taken Comments Blood Pressure 130/75 08/05/2024 2:51 PM CDT Pulse 75 08/05/2024 2:51 PM CDT Temperature 36 C (96.8 F) 07/29/2021 9:49 AM CDT Respiratory Rate 14 10/30/2022 1:54 PM CDT Oxygen Saturation 94% 08/05/2024 2:51 PM CDT Inhaled Oxygen Concentration - - Weight 64.4 kg (142 lb) 08/05/2024 2:51 PM CDT Height 154.9 cm (5' 1) 08/05/2024 2:51 PM CDT Body Mass Index 26.83 08/05/2024 2:51 PM CDT Plan of Treatment Upcoming Encounters Date Type Department Care Team (Late st Contact Info) Description 12/09/2024 3:20 PM CDT Office Visit [facility] - Endocrinology [address] [place] [address], [place] [address] Raffi Koo MD [address] [place] [phone] Health Maintenance Due Date Last Done Comments COLOGUARD (AGES 45-75) - COLON CA SCREENING 1964 COLON MONITORING 1964 COLONOSCOPY - COLON CA SCREENING 1964 CT COLONOGRAPHY - COLON CA SCREENING 1964 Colorectal Cancer Screening 1964 FIT - COLON CA SCREENING 1964 FLEX SIG - COLON CA SCREENING 1964 MAMMOGRAM 1964 HIV SCREENING 01/22/1979 HEPATITIS C SCREENING 01/18/1982 DTAP/TDAP/TD VACCINES (1 - Tdap) 01/22/1983 PNEUMOCOCCAL VACCINE 50+ (1 of 2 - PCV) 01/22/1983 PAP SMEAR 01/22/1985 LUNG CANCER SCREENING 01/22/2014 ZOSTER VACCINE (1 of 2) 01/22/2014 COVID-19 VACCINE (3 - season) 2023 06/19/2020, 05/22/2020 Respiratory Syncytial Virus (RSV) Vaccine Pt: or over 60 yrs (1 - Risk 60-74 years 1-dose series) 2024 DEPRESSION SCREENING 02/24/2024 INFLUENZA VACCINE (#1) 2024 2021 LIPID TESTING 07/29/2026 07/29/2021 SCREENING FOR DIABETES 08/06/2027 , 08/05/2024, 07/29/2021, Additional history exists HEPATITIS B VACCINE Aged Out No longe r eligible based on patient's age to complete this topic HIB VACCINE Aged Out No longer eligi ble based on patient's age to complete this topic HPV VACCINE Aged Out No longer eligi ble based on patient's age to complete this topic MENINGOCOCCAL (Group B) VACCINE SHARED DECISION-MAKING Aged Out No longer eligible based on patient's age to complete this topic MENINGOCOCCAL GROUPS A/C/Y/W VACCINE Aged Out No longer eligible based on patient's age to complete this topic Procedures Procedure Name Priority Date/Time Associated Diagnosis Comments VITAMIN D 25-HYDROXY Routine 08/05/2024 4:22 PM CDT Hypovitaminosis D T4 FREE Routine 08/05/2024 4:22 PM CDT Hypothyroidism, acquired TSH Routine 08/05/2024 4:22 PM CDT Hypothyroidism, acquired COMPREHENSIVE METABOLIC PANEL Routine 08/05/2024 4:22 PM CDT Age-related osteoporosis without current pathological fracture CBC W/O DIFFERENTIAL Routine 08/05/2024 4:22 PM CDT Age-related osteoporosis without current pathological fracture HEMOGLOBIN A1C - POINT OF CARE (AMB) [facility] Routine 08/05/2024 3:22 PM CDT Screening for diabetes mellitus (DM) NC LARYNGOSCOPY,FLEX FIBER,DIAGNOSTIC Routine 06/15/2024 10:56 AM CDT Supraglottic mass CT NECK SOFT TISSUE W CONT Routine 06/15/2024 8:01 AM CDT Hoarseness Odynophagia Supraglottic mass CT CHEST W CONTRAST Routine 06/15/2024 8 :00 AM CDT Hoarseness Odynophagia Supraglottic mass CREATININE - POCT INTERFACED Routine 06/15/2024 7:36 AM CDT LIPID PROFILE Routine 07/29/2021 10:58 AM CDT Metabolic syndrome Mixed hyperlipidemia from Last 3 Months or Most Recently Relevant to Health Maintenance Results * VITAMIN D 25-HYDROXY (08/05/2024 4:22 PM CDT) [facility] Vitamin D, 25 Hydroxy 30.2 30.0 - 80.0 ng/mL 08/05/2024 6:07 PM CDT [facility] Comment: The recommendations for 25-Hydroxy Vitamin D clinical decision points are as follows: Deficient: <20.0 ng/mL Insufficient: 20.0 - 29.9 ng/mL Sufficient: 30.0 - 100.0 ng/mL Potential Toxicity: >100 ng/mL Reference: The Endocrine Society Clinical Practice Guidelines. 2011 If the 25-Hydroxy Vitamin D results are inconsitent with clinical evidence, it is recommended that follow-up testing using a method such as LC/MS/MS be performed to confirm the result. Blood BLOOD SPECIMEN / Unknown Lab Venipuncture / Unknown 08/05/2024 4:22 PM CDT 08/05/2024 4:45 PM CDT us Raffi Koo MD LAB - CHEMISTRY ORDERABLES Fin al Result [facility] [address] [place] [phone], [facility] [phone] * CBC W/O DIFFERENTIAL (08/05/2024 4:22 PM CDT) Pathologist [facility] WBC 10.7 4.0 - 10.7 x10E9/L 08/05/2024 5:05 PM T [facility] RBC Count 4.57 3.90 - 5.20 x10E12/L 08/05/2024 5:05 PM [facility] Hemoglobin 13.6 11.9 - 15.8 g/dL 08/05/2024 5:05 PM [facility] Hematocrit 40.9 34.8 - 46.1 % 08/05/2024 5:05 PM [facility] MCV 89.5 80.0 - 98.0 fL 08/05/2024 5:05 PM [facility] MCH 29.8 26.7 - 33.6 pg 08/05/2024 5:05 PM [facility] MCHC 33.3 31.7 - 36.3 g/dL 08/05/2024 5:05 PM [facility] RDW-CV 12.2 11.3 - 14.8 % 08/05/2024 5:05 PM [facility] Platelet Count 248 150 - 420 x10E9/L 08/05/2024 5:05 PM [facility] MPV 10.1 7.8 - 11.4 fL 08/05/2024 5:05 PM [facility] Blood BLOOD SPECIMEN / Unknown Lab Venipuncture / Unknown 08/05/2024 4:22 PM CDT 08/05/2024 4:35 PM CDT Raffi Koo MD LAB - HEMATOLOGY ORDERABLES Fi nal Result [facility] [address] [place] [phone], [facility] [phone] * (ABNORMAL) COMPREHENSIVE METABOLIC PANEL (08/05/2024 4:22 PM CDT) Pathologist [facility] BUN 7 7 - 26 mg/dL 08/05/2024 5:55 PM [facility] Creatinine 0.70 0.56 - 0.96 mg/dL 08/05/2024 5:55 PM [facility] Sodium 142 136 - 145 mmol/L 08/05/2024 5:55 PM [facility] Potassium 4.1 3.5 - 4.5 mmol/L 08/05/2024 5:55 PM [facility] Chloride 107 98 - 107 mmol/L 08/05/2024 5:55 PM [facility] CO2 30(H) 22 - 29 mmol/L 08/05/2024 5:55 PM [facility] Glucose 95 70 - 99 mg/dL 08/05/2024 5:55 PM [facility] Calcium 9.2 8.4 - 10.2 mg/dL 08/05/2024 5:55 PM [facility] Protein Total 7.0 6.0 - 8.3 g/dL 08/05/2024 5:55 PM [facility] Albumin 4.2 3.4 - 5.0 g/dL 08/05/2024 5:55 PM [facility] Bilirubin Total 0.4 0.2 - 1.2 mg/dL 08/05/2024 5:55 PM [facility] Alkaline Phosphatase 65 40 - 150 U/L 08/05/2024 5:55 PM [facility] ALT 12 5 - 55 U/L 08/05/2024 5:55 PM [facility] AST 16 5 - 34 U/L 08/05/2024 5:55 PM [facility] Anion Gap 5(L) 6 - 16 08/05/2024 5:55 PM [facility] BUN/Creatinine Ratio 10 7 - 23 08/05/2024 5:55 PM [facility] Osmolality Calculated 292 275 - 295 mOsm/kg 08/05/2024 5:55 PM [facility] Albumin/Globulin Ratio 1.5 1.1 - 2.3 08/05/2024 5:55 PM [facility] eGFR by CKD-EPI >90 >=90 mL/min/1.7 3 m2 08/05/2024 5:55 PM CDT [facility] Blood BLOOD SPECIMEN / Unknown Lab Venipuncture / Unknown 08/05/2024 4:22 PM CDT 08/05/2024 4:45 PM CDT Narrative [facility] - 08/05/2024 5:55 PM CDT Estimated Glomerular Filtration Rate (eGFR) calculated using the CKD-EPI Creatinine Equation (2020), per the National Kidney Foundation and [place] Society of Nephrology recommendations. Raffi Koo MD LAB - CHEMISTRY ORDERABLES Fin al Result [address] [address], [place] [phone] * TSH (08/05/2024 4:22 PM CDT) TSH 1.236 0.350 - 4.940 uIU/mL 08/05/2024 6:07 PM CDT [facility] Blood BLOOD SPECIMEN / Unknown Lab Venipuncture / Unknown 08/05/2024 4:22 PM CDT 08/05/2024 4:45 PM CDT Raffi Koo MD LAB - CHEMISTRY ORDERABLES Fin al Result Performing Organization Address [facility]/ZIP Co de Phone Number [address] [address], [place] [phone] * T4 FREE (08/05/2024 4:22 PM CDT) T4 Free 1.2 0.7 - 1.5 ng/dL 08/05/2024 6:07 PM CDT [facility] Blood BLOOD SPECIMEN / Unknown Lab Venipuncture / Unknown 08/05/2024 4:22 PM CDT 08/05/2024 4:45 PM CDT Result [facility] Raffi Koo MD LAB - CHEMISTRY ORDERABLES Fin al Result Performing Organization Address City/[facility]/ZIP Co de Phone Number [address] [address], [place] [phone] * HEMOGLOBIN A1C - POINT OF CARE (AMB) [facility] (08/05/2024 3:22 PM CDT) Hemoglobin A1c POCT 5.4 % [facility] TAYLOR [facility] BLOOD SPECIMEN / Unknown 08/05/2024 3:22 PM CDT Raffi Koo MD LAB - POINT OF CARE ORDERABLES Final Result REI Bello [facility], [place] [address], [facility] [phone] * NC LARYNGOSCOPY,FLEX FIBER,DIAGNOSTIC (06/15/2024 10:56 AM CDT) Narrative Joe Roland MD - 06/15/2024 10:56 AM CDT Joe Roland MD 06/15/2024 10:57 AM Procedure Note Anesthesia: Lidocaine 2% and Cali-Synephrine 1/2% Endoscopy Type: Flexible Jhsmk-Csjmzwhosivazv-Ynfhaeayotyn Procedure Details: Informed consent was obtained. The patient was placed in the sitting position. After topical anesthesia and decongestion, the 4 mm laryngoscope was passed. The nasal cavities, nasopharynx, oropharynx, hypopharynx, and larynx were all examined. Vocal cords were examined during respiration and phonation. Findings: - Ulcerated supraglottic mass predominantly right side extending down onto the vocal cords bilaterally. The vocal cord mobility is preserved. Disposition: The patient tolerated procedure well. Complications: None EBL: none Joe Roland MD PROCEDURE/MINOR SURGICAL ORDERAB LES Final Result * CT Neck Soft Tissue W Cont (06/15/2024 8:01 AM CDT) Anatomical Region Laterality Modality Head Computed Tomogra phy 06/15/2024 11:0 6 AM CDT Impressions 06/15/2024 11:31 PM CDT IMPRESSION: 1.Mucosal-based enhancing right transglottic mass measuring approximately 2.0 x 1.8 x 4.8 cm, superiorly extending the right aryepiglottic fold/piriform sinus, as well as into the false vocal cords, and preepiglottic region, and inferiorly to the subglottic larynx, and crossing the anterior midline, causing severe narrowing of the upper airway. These findings are concerning for malignancy such as a squamous cell carcinoma and corresponding to ulcerated supraglottic mass seen on the patient's recent laryngoscopy. 2.Bilateral level 2 lymphadenopathies measuring up to 12 x 16 mm The report was drafted by Daniele Hastings MD (sr vice president). I, Dale Sanabria MD have personally reviewed and interpreted this examination/study. > Interpreting Provider: Dale Sanabria MD on 06/15/2024 11:31 PM Narrative 06/15/2024 11:31 PM CDT PROCEDURE: CT NECK SOFT TISSUE W CONT, DATE/TIME OF EXAM: 06/15/2024 8:02 AM, LOCATION [facility] INDICATION: R49.0: Hoarseness R13.10: Odynophagia J38.7: Supraglottic mass TECHNIQUE: CT of the neck was performed following the uneventful administration of intravenous contrast according to standard protocol. Contrast: IOPAMIDOL 76 % IV SOLN:75 mL COMPARISON: No prior study is available for comparison at the time of this dictation. FINDINGS: There is a mucosal-based enhancing right transglottic mass measuring approximately 2.0 x 1.8 x 4.8 cm (TV x AP x CC, series 5 image 66, series 8 image 71), superiorly extending the right aryepiglottic fold/piriform sinus, as well as into the false vocal cords, and preepiglottic region, and inferiorly to the subglottic larynx, and crossing the anterior midline, causing severe narrowing of the upper airway (series 5 image 69). These findings are concerning for malignancy such as a squamous cell carcinoma and corresponding to ulcerated supraglottic mass seen on the patient's recent laryngoscopy. Bilateral level 2 lymphadenopathies measuring up to 12 x 16 mm (series 6 image 56). Multiple small subcentimeter lymph nodes are noted in both sides of the neck with no evidence of cervical lymphadenopathy. The muscles of the neck appear normal. The cervical internal carotid arteries and internal jugular veins appear normal. Fascial planes are preserved and the deep spaces of the neck appear normal. The nasopharynx and oropharynx appear normal. Otherwise the visualized airway is patent. The visualized portions of the posterior fossa and brain appear normal. There is cervical degenerative disc and joint disease. The visualized orbits and paranasal sinuses appear normal. The thyroid gland is normal. The visible lung apices are clear. Procedure Note Dale Sanabria MD - 06/15/2024 PROCEDURE: CT NECK SOFT TISSUE W CONT, DATE/TIME OF EXAM: 58:02 AM, LOCATION [facility] INDICATION: R49.0: Hoarseness R13.10: Odynophagia J38.7: Supraglottic mass TECHNIQUE: CT of the neck was performed following the uneventful administration of intravenous contrast according to standard protocol. Contrast: IOPAMIDOL 76 % IV SOLN:75 mL COMPARISON: No prior study is available for comparison at the time ofthis dictation. FINDINGS: There is a mucosal-based enhancing right transglottic mass measuring approximately 2.0 x 1.8 x 4.8 cm (TV x AP x CC, series 5 image 66, series8 image 71), superiorly extending the right aryepiglottic fold/piriform sinus, as well as into the false vocal cords, and preepiglottic region,and inferiorly to the subglottic larynx, and crossing the anterior midline, causing severe narrowing of the upper airway (series 5 image 69). These findings are concerning for malignancy such as a squamous cell carcinoma and corresponding to ulcerated supraglottic mass seen on the patient's recent laryngoscopy. Bilateral level 2 lymphadenopathies measuring up to 12 x 16 mm (series 6 image 56). Multiple small subcentimeter lymph nodes are noted in bothsides of the neck with no evidence of cervical lymphadenopathy. The muscles of the neck appear normal. The cervical internal carotid arteries andinternal jugular veins appear normal. Fascial planes are preserved and the deep spaces of the neck appear normal. The nasopharynx and oropharynx appear normal. Otherwise the visualized airway is patent. The visualized portions of the posterior fossa and brain appear normal. There is cervical degenerative disc and joint disease. The visualized orbits and paranasal sinuses appear normal. The thyroid gland is normal. The visible lung apices are clear. IMPRESSION: 1.Mucosal-based enhancing right transglottic mass measuringapproximately 2.0 x 1.8 x 4.8 cm, superiorly extending the right aryepiglottic fold/piriform sinus, as well as into the false vocal cords, and preepiglottic region, and inferiorly to the subglottic larynx, andcrossing the anterior midline, causing severe narrowing of the upper airway.These findings are concerning for malignancy such as a squamous cell carcinoma and corresponding to ulcerated supraglottic mass seen on the patient's recent laryngoscopy. 2.Bilateral level 2 lymphadenopathies measuring up to 12 x 16 mm The report was drafted by Daniele Hastings MD (sr vice president). Dale Rivera MD have personally reviewed and interpreted this examination/study. > Interpreting Provider: Dale Sanabria MD on 06/15/2024 11:31 PM us Jeremie Almanza MD CT ORDERABLES Final Res ult * CT Chest W Contrast (06/15/2024 8:00 AM CDT) Anatomical Region Laterality Modality Chest Computed Tomogra phy 06/15/2024 8:10 AM CDT Impressions 06/15/2024 12:39 PM CDT Impression: 1.No evidence of metastatic disease in the chest. 2.Dependent atelectatic changes are noted in the right lung. 3.Bilateral stable enlarged adrenal glands, likely adrenal adenomas similar to prior CT report dated 10/12/2018. > Dictated by Francisco Tong MD (residential nurse). Christina Rivera MD have personally reviewed and interpreted this examination/study. > Interpreting Provider: Christina oMntalvo MD on 06/15/2024 12:39 PM Narrative 06/15/2024 12:39 PM CDT PROCEDURE: CT CHEST W CONTRAST, DATE/TIME OF EXAM: 06/15/2024 8:01 AM, LOCATION [facility] INDICATION: R49.0: Hoarseness R13.10: Odynophagia J38.7: Supraglottic mass ADDITIONAL CLINICAL INFORMATION: Ordering Provider Reason For Exam: Technologist Note: Additional: COMPARISON: CT urogram from 10/12/2018. TECHNIQUE: CT of the chest was performed following the uneventful administration of 100 mL of Isovue 370 intravenous contrast according to standard protocol. Findings: Lower Neck and Axillae: Normal. Lungs: Dependent atelectatic changes are noted in the right lung. Calcified granuloma there is a calcified granuloma in the No pulmonary parenchymal or airway process is present. No suspicious pulmonary nodules are identified. No pleural fluid or pneumothorax is present. Heart and Pericardium: The cardiac chambers are normal in size. No pericardial fluid or thickening is present. Mediastinum and Rosalva: No enlarged lymph nodes are present. Thoracic Vasculature: No vascular abnormality is present. Bones and Chest Wall: Bone windows demonstrate no suspicious lytic or blastic lesions. The visible osseous structures are intact. Degenerative changes are seen in the spine. Upper Abdomen: Bilateral stable adrenal adenomas compared to CT urogram dated 10/12/2018. Multiple calcified granulomas are present. Prominent subcentimeter periportal lymph nodes are present. Multiple calcified phleboliths are noted in the spleen. Procedure Note Christina Montalvo MD - 06/15/2024 PROCEDURE: CT CHEST W CONTRAST, DATE/TIME OF EXAM: 06/15/2024 8:01 AM, LOCATION [facility] INDICATION: R49.0: Hoarseness R13.10: Odynophagia J38.7: Supraglottic mass ADDITIONAL CLINICAL INFORMATION: Ordering Provider Reason For Exam: Technologist Note: Additional: COMPARISON: CT urogram from 10/12/2018. TECHNIQUE: CT of the chest was performed following the uneventful administration of 100 mL of Isovue 370 intravenous contrast according to standard protocol. Findings: Lower Neck and Axillae: Normal. Lungs: Dependent atelectatic changes are noted in the right lung. Calcified granuloma there is a calcified granuloma in the No pulmonary parenchymal or airway process is present. No suspicious pulmonary nodules are identified. No pleural fluid or pneumothorax is present. Heart and Pericardium: The cardiac chambers are normal in size. No pericardial fluid orthickening is present. Mediastinum and Rosalva: No enlarged lymph nodes are present. Thoracic Vasculature: No vascular abnormality is present. Bones and Chest Wall: Bone windows demonstrate no suspicious lytic or blastic lesions. The visible osseous structures are intact. Degenerative changes are seen inthe spine. Upper Abdomen: Bilateral stable adrenal adenomas compared to CT urogram dated10/12/2018. Multiple calcified granulomas are present. Prominent subcentimeter periportal lymph nodes are present. Multiple calcified phleboliths are noted in the spleen. Impression: 1.No evidence of metastatic disease in the chest. 2.Dependent atelectatic changes are noted in the right lung. 3.Bilateral stable enlarged adrenal glands, likely adrenal adenomassimilar to prior CT report dated 10/12/2018. > Dictated by Francisco Tong MD (residential nurse). I, Christina Montalvo MD have personally reviewed and interpreted this examination/study. > Interpreting Provider: Christina Montalvo MD on 512:39 PM Jeremie Almanza MD CT ORDERABLES Final Res ult * CREATININE - POCT INTERFACED (06/15/2024 7:36 AM CDT) [facility] Creatinine POCT 0.65 0.30 - 1.30 mg/dL 06/15/2024 8:23 AM CDT [facility] eGFR >90 >=90 mL/min/1.7 3 m2 06/15/2024 8:23 AM CDT [facility] Blood BLOOD SPECIMEN / Unknown 06/15/2024 7:36 AM CDT 06/15/2024 8:23 AM CDT Jeremie Almanza MD LAB - POINT OF CARE ORDER J CARLOS Final Result [facility] [address] [place] [id number], [facility] [phone] * (ABNORMAL) LIPID PROFILE (07/29/2021 10:58 AM CDT) Cholesterol Total 199 <200 mg/dL 07/29/2021 12:16 PM CDT [facility] HDL 48 >40 mg/dL 07/29/2021 12:16 PM CDT [facility] Comment: ATP III Classification of HDL Cholesterol: <40 mg/dL: Considered a major risk factor. >60 mg/dL: Considered a negative risk factor. LDL Calculated 114(H) <100 mg/dL 07/29/2021 12:16 PM T [facility] Comment: ATP III Classification of LDL Cholesterol: <100 mg/dL: Optimal 100 - 129 mg/dL: Near Optimal/Above Optimal 130 - 159 mg/dL: Borderline High 160 - 189 mg/dL: High >190 mg/dL: Very High Triglycerides 185(H) <150 mg/dL 07/29/2021 12:16 PM CDT [facility] Comment: ATP III Classification of Triglycerides: <150 mg/dL: Normal 150 - 199 mg/dL: Borderline High 200 - 400 mg/dL: High >500 mg/dL: Very High Blood BLOOD SPECIMEN / Unknown Lab Venipuncture / Unknown 07/29/2021 10:58 AM CDT 07/29/2021 11:44 AM CDT Raffi Koo MD LAB - CHEMISTRY ORDERABLES Fin al Result Performing Organization Address [facility] de Phone Number [facility] [address] [place] [address], [facility] [phone] from Last 3 Months or Most Recently Relevant to Health Maintenance Insurance [facility] Care Teams Doctor Of Pharmacy Relationship Specialty Start Date End Date Amor Josue MD [address] [facility] [address] [place] [address] PCP - General 04/26/15
--- OUTSIDE RECORDS SUMMARY | 2024-09-02 11:07 | XMS_ITS | Clinical Summary ---
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 Name Role Phone Amor Josue MD Primary Care Provider [phone] Allergies Active Allergy Reactions Criticality Noted Date Comments Aripiprazole Nausea and Vomiting,Other (See Comments) Low 06/10/2016 nerve jump in right arm nerve jump in right arm Codeine Nausea and Vomiting Low 06/10/2016 vomiting and fever vomiting and fever Diphenhydramine Itching,Swelling Medium 06/10/2016 Ibuprofen Swelling Low 06/29/2018 Olanzapine Swelling Medium 06/10/2016 Face and mouth swelling Face and mouth swelling Face and mouth swelling Sulfasalazine Other (See Comments) Low 06/10/2016 unknown Medications levothyroxine 112 mcg tablet TK 1 T PO QD 12/12/2019 A ctive alendronate (FOSAMAX) 70 mg tablet 01/10/2020 Active cephALEXin (KEFLEX) 500 mg capsule 09/12/2020 Active albuterol sulfate 90 mcg/Actuation inhaler INHALE 2 PUFFS BY MOUTH EVERY 6 HOURS 07/18/2020 Active ergocalciferol (VITAMIN D2) 50,000 unit capsule TAKE 1 CAPSULE BY MOUTH WEEKLY 08/24/2020 Active Active Problems Problem Noted Date Diagnosed Date 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 Leukocytosis (leucocytosis) 12/20/2019 Encounters Date Type Department Care Team Description 06/08/2024 Orders Only [facility] Oncology and Hematology - [place] [address] [place] [address] Joshua Guo MD Leukocytosis, unspecified type (Primary Dx) from Last 3 Months Social History Tobacco Use Types Packs/Day Years Used Date Smoking Tobacco: Every Day Cigarettes Tobacco Cessation:Ready to Q uit: No Alcohol Use Standard Drinks/Week Comments Not Currently 0 (1 standard drink = 0.6 oz pur e alcohol) Comments Unknown Sex and Gender Information Value Date Recorded Sex Assigned at Not on file Legal Sex Female 1:34 PM CDT Gender Identity Not on file Sexual Orientation Not on file Last Filed Vital Signs Vital Sign Reading Time Taken Comments Blood Pressure 135/73 09/19/2021 12:16 PM CDT Pulse 83 09/19/2021 12:16 PM CDT Temperature 36.4 C (97.6 F) 09/19/2021 12:16 PM CDT Respiratory Rate - - Oxygen Saturation 95% 09/19/2021 12:16 PM CDT Inhaled Oxygen Concentration - - Weight 82.2 kg (181 lb 4.8 oz) 09/19/2021 12:16 PM CDT Height 154.9 cm (5' 1) 09/19/2021 12:16 PM CDT Body Mass Index 34.26 09/19/2021 12:16 PM CDT Plan of Treatment Health Maintenance Due Date Last Done Comments DTAP/TDAP/TD VACCINES (1 - Tdap) 01/22/1983 HPV/Cotest (21-29) 01/22/1985 CERVICAL CANCER SCREENING 01/22/1994 HPV/Cotest (30-65) 01/22/1994 PAP SMEAR 01/22/1994 BREAST CANCER SCREENING 2004 COLORECTAL SCREENING 01/22/2009 Colorectal Cancer Screening 01/22/2009 FIT-DNA Q 3 years 01/22/2009 FIT/FOBT Q 1 year 01/22/2009 Flex Sig/CT Colonography Q 5 years 01/22/2009 ZOSTER VACCINE (1 of 2) 01/22/2014 Preventative Visit-Managed Medicaid 07/14/2021 07/13/2020 RSV VACCINE (60+ or ) (1 - Risk 60-74 years 1-dose series) 2024 INFLUENZA VACCINE (#1) 2024 HEPATITIS B VACCINES Aged Out No long er eligible based on patient's age to complete this topic Insurance [facility] MEDICAID Care Teams Swiss Machinist Relationship Specialty Start Date End Date Amor Josue MD [address] [place] [phone] PCP - General Emergency Medicine 12/05/19
[2024-09-02 11:12] LABS: Hematocrit 43.4 % (37.0-47.0); Hemoglobin 14.4 g/dL (12.0-15.0); Immature Granulocyte Percent A 0.2 % (0-0.5); Lymphocytes Absolute Auto 5.14 K/mm3 (0.9-3.2); Mean Corpuscular HGB Conc 33.2 g/dl (32-36); Mean Corpuscular Hemoglobin 30.2 pg (26-34); Mean Corpuscular Volume 91.0 fl (80-100); Nucleated Red Blood Cells Absolute Auto 0.000 K/mm3 (0.0-0.012); Nucleated Red Blood Cells Perc 0.0 % (0.0-0.2); Platelet Count Result 278 k/mm3 (150-375); Red Blood Count 4.77 M/mm3 (4.2-5.4); White Blood Count 10.5 K/mm3 (4.5-10.0)
[2024-09-02 11:16] LABS: Blood Urea Nitrogen 4 mg/dL (8-26); Carbon Dioxide 29 mmol/L (22-30); Chloride 100 mmol/L (98-109); Estimated Glomerular Filt Rate > 60; Glucose 102 mg/dL (70-105); Ionized Calcium (POC) 1.22 mmol/L (1.11-1.31); Potassium 4.0 mmol/L (3.5-4.9); Sodium 143 mmol/L (138-146)
== END 2024-09-02 11:02 | disposition home or self-care (01) ==
LOC: ANHLAB 11:02
PROVIDERS: PCP Emergency Medicine; Visit Provider Internal Medicine Hematology & Oncology
DX: D72.829 Elevated white blood cell count, unspecified (principal)
CPT/HCPCS: 36415; 80047; 85025